=== PATIENT | male | born 1945 | race Caucasian/White ===

== ENCOUNTER → 2020-08-10 | Outpatient (CLI) | payer OTHER ==
[~2020-08-10] MED LIST: BACTRIM DS TAB1 EACH PO; GLIPIZIDE5 MG PO; GLUCOPHAGE1000 MG PO; KEFLEX500 M1 PO; METFORMIN HCL500 MG PO; NAPROSYN500 MG PO; NEURONTIN100 MG PO; PROAIR HFA8.5 GM INH; STIOLTO RESPIMAT4 GM INH; VITAMIN D325 MC3 PO; ZOCOR20 MG PO
== END ==
LOC: SJCVCIMAG 07:29
PROVIDERS: ATTEND Internal Medicine Cardiovascular Disease
DX: Z01.810 Encounter for preprocedural cardiovascular examination (principal); I65.23 Occlusion and stenosis of bilateral carotid arteries; I35.8 Other nonrheumatic aortic valve disorders; E11.9 Type 2 diabetes mellitus without complications; E78.5 Hyperlipidemia, unspecified; J44.9 Chronic obstructive pulmonary disease, unspecified; F17.200 Nicotine dependence, unspecified, uncomplicated

== ENCOUNTER → 2020-08-10 | Outpatient (CLI) | payer OTHER ==
[2020-08-10 11:31] LABS: ABSOLUTE NEUTROPHILS 6.6 thou/uL (1.4-8.2); BASOPHILS 0.6 % (0.0-2.0); EOSINOPHILS 1.2 % (0.0-3.0); HEMOGLOBIN 13.8 gm/dL (14.0-18.0); LYMPHOCYTES 23.2 % (24.0-44.0); MCH 30.6 pg (26.0-34.0); MCHC 32.9 g/dL (28.0-37.0); MONOCYTES 7.8 % (1.0-8.0); PLATELET COUNT 269 thou/uL (150-400); POLYS 67.2 % (36.0-66.0); RBC 4.51 mil/uL (4.50-6.00); WBC 9.9 thou/uL (4.0-11.0)
[2020-08-10 11:50] LABS: APTT 38.4 Seconds (24.5-32.8); INR 0.98; PROTIME 10.7 Seconds (10.5-12.1)
[2020-08-10 11:55] LABS: CALCIUM 9.1 mg/dL (8.5-10.1); POTASSIUM 5.1 mmol/L (3.5-5.1); TOTAL BILIRUBIN 0.6 mg/dL (0.2-1.0); TOTAL PROTEIN 7.4 g/dL (6.4-8.2)
[2020-08-10 12:31] LABS: URINE BILIRUBIN NEGATIVE (Negative); URINE BLOOD NEGATIVE (Negative); URINE CLARITY CLEAR; URINE COLOR YELLOW; URINE GLUCOSE-RANDOM* NEGATIVE (Negative); URINE KETONES NEGATIVE (Negative); URINE LEUKOCYTES-REFLEX NEGATIVE (Negative); URINE NITRITE-REFLEX NEGATIVE (Negative); URINE PROTEIN (DIPSTICK) NEGATIVE (Negative); URINE UROBILINOGEN 0.2 E.U./dl (0.2-1.0)
--- NOTE | 2020-08-11 13:07 | EKG ---
[place] [address] [facility] [place] 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
== END ==
LOC: PAC 09:00
PROVIDERS: ATTEND Surgery Vascular Surgery
DX: Z01.818 Encounter for other preprocedural examination (principal); I73.9 Peripheral vascular disease, unspecified; I70.0 Atherosclerosis of aorta; I49.1 Atrial premature depolarization; I45.2 Bifascicular block

== ENCOUNTER 2020-08-16 06:25 | Inpatient (IN) | payer OTHER ==
[~2020-08-16] VITALS: Ht 177.8 cm; Wt 70.8 kg
[2020-08-16 07:44] VITALS: BP 153/86
[2020-08-16 19:00] VITALS: BP 110/48
[2020-08-16 20:00] VITALS: BP 95/54
[2020-08-16 21:00] VITALS: BP 111/56
[2020-08-16 22:00] VITALS: BP 129/54
[2020-08-16 23:00] VITALS: BP 115/55
[2020-08-17] VITALS (27 sets, daily range): BP systolic 95–159; BP diastolic 52–86
[2020-08-17 05:23] LABS: CALCIUM 8.1 mg/dL (8.5-10.1); POTASSIUM 4.2 mmol/L (3.5-5.1)
[2020-08-17 05:28] LABS: HEMATOCRIT 35.2 % (42.0-52.0); HEMOGLOBIN 11.8 gm/dL (14.0-18.0); MCHC 33.5 g/dL (28.0-37.0); MCV 92.5 fL (80.0-100.0); RBC 3.81 mil/uL (4.50-6.00); RDW 13.7 % (10.5-14.5); WBC 15.5 thou/uL (4.0-11.0)
[2020-08-17 10:14] LABS: FOLIC ACID 14.1 ng/mL (8.6-58.9)
--- NOTE | 2020-08-17 12:35 | NUR ---
Opened case, pod # 1 femoral endarterectomy with patch closure. Cm visited with him at beds, intro to dcp and transition of care. He was up in recliner chair. A & o x 4, able to make his needs know. Prior to hospital, he independent, retired, lives home with , and 7-year-old grandson. 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 has 2 canes, and walker with seat that was his moms. No hh or rehab in past. PCP dr Bri Proctor and dr alonso. No anticipated needs at [place]. Dcp: home.
--- NOTE | 2020-08-18 11:36 | O ---
[facility] [place] [address] OPERATIVE REPORT Name: PANCHO PITTMAN Room #: 251-P [facility] IN M.R.#: [id number] Admission: 08/16/20 Attend Phys: Orlin Vasquez MD Discharge: 08/17/20 Date of : 47 Report #: [id number] THIS REPORT FOR: cc: Ammy Proctor MD, Lin W. MD Forman,Orlin Ortiz MD ~ DOC #: [id number] Orlin Vasquez MD DATE OF SERVICE: 08/16/2020 PREOPERATIVE DIAGNOSIS: Left femoral artery occlusive disease. POSTOPERATIVE DIAGNOSIS: Left femoral artery occlusive disease. OPERATION: Left femoral endarterectomy with patch closure. SURGEON: Orlin Vasquez MD. FIRESTOPPER INSTALLER: ZACK Veilz. ANESTHESIA: General. INDICATIONS: The patient is a 75-year-old with lower extremity arterial occlusive disease on the left side, the flow-limiting lesion appears to be the tight lesion at the femoral bifurcation occluding the superficial femoral artery. FINDINGS AND TECHNIQUE: After general anesthesia was established, an oblique left groin incision was made. Common, deep and superficial femoral arteries were identified and controlled. A 10,000 units of heparin were given. The femoral arteriotomy was made. The endarterectomy was performed without creating a distal flap. Neointima was inspected and all loose debris was removed. Tacking sutures were placed at the superficial femoral and deep femoral origins. When the endarterectomy was deemed to be satisfactory, the arteriotomy was closed with running Prolene and a thin walled pericardial patch. Prior to finishing the closure, the vessels were backbled and the artery was irrigated with heparinized saline. Flow was established. Hemostasis was ascertained. A 50 mg of protamine was given to reverse the heparin. When hemostasis was satisfactory, wound was closed in layers. The patient was taken to the recovery area in good condition having tolerated the procedure [address] [address] OPERATIVE REPORT Name: TOYAPANCHO Room #: 251-P [facility] IN M.R.#: [id number] Admission: 08/16/20 Attend Phys: Orlin Vasquez MD Discharge: 08/17/20 Date of : 47 Report #: [id number] well. All counts were reported as correct. Orlin Vasquez MD JF/MÓNICA <ELECTRONICALLY SIGNED> By: Orlin Vasquez MD 08/18/20 1136 0934 0952 Orlin Vasquez MD /jamal
--- NOTE | 2020-08-21 13:13 | PATH ---
[facility] [address] [place] [address] PATHOLOGY RPT PROCEDURE Name: TOYAJOSE Room #: 251-P [facility] IN M.R.#: [id number] Admission: 08/16/20 Date of : 47 Discharge: 08/17/20 Report #: [id number] Path Case #: [id number] [facility] Accession Number: [id number] . 01 Material submitted: . FEMORAL ARTERY - LEFT FEMORAL ARTERY PLAQUE. Modifiers: left . 01 Clinical history: . FEMORAL ENDARTERECTOMY (+++) PAD . 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 (IUV:pit; 08/20/2020) QTP 08/20/2020 1752 Local . 02 Electronically signed: . Clara Noland MD, Pathologist NPI- [id number] . 01 Gross description: . Received in formalin labeled "Jose Conklin, left femoral artery plaque" are multiple irregular, resendiz white calcified portions of soft tissue measuring in area 5.4 x 1.1 x 1.1 cm. The specimen is sectioned to reveal resendiz yellow gritty cut surface. Manager Spanish sections of the specimen are submitted after decalcification in cassette A1.([facility]; 08/19/2020) . GZA/GZA 08/19/2020 0934 Local . 02 Pathologist provided ICD-10: I70.212 . 02 CPT . 009905, 100641 Specimen Comment: A courtesy copy of this report has been sent to [phone] Specimen Comment: [phone] Specimen Comment: Report sent to / DR MAURICIO Performed at: 01 [place] [id number] [address] [id number] MD Kvng Shaffer MD Phone: [phone] Performed at: [address] [id number] [address] [address] PATHOLOGY RPT PROCEDURE Name: JOSE CONKLIN Room #: 251-P [facility] IN M.R.#: [id number] Admission: 08/16/20 Date of : 47 Discharge: 08/17/20 Report #: [id number] Path Case #: [id number] MD Clara Noland MD Phone: [phone]
== END 2020-08-17 17:15 | disposition home or self-care (01) | DRG 254 ==
LOC: PRE → ICU 06:25 → TBA 06:25 → PRE 11:06 → ICU 12:54
PROVIDERS: Nurse Practitioner; Physician Assistant; ADMIT Surgery Vascular Surgery; ATTEND Surgery Vascular Surgery
DX: I70.202 Unspecified atherosclerosis of native arteries of extremities, left leg (principal); J44.9 Chronic obstructive pulmonary disease, unspecified; I10 Essential (primary) hypertension; E11.51 Type 2 diabetes mellitus with diabetic peripheral angiopathy without gangrene; E78.5 Hyperlipidemia, unspecified; K21.9 Gastro-esophageal reflux disease without esophagitis
CPT/HCPCS: 10078; 47375; 50010; 50101; 50386; 50455; 50643; 50953; 52287; 56522; 56524; 56526; 56534; 56668; 56760; 57092; 57093; 58585; 58731; 62110; 62900; 65020; 70005